=== PATIENT | female | born 1985 | race Caucasian/White ===

== ENCOUNTER 2020-11-27 13:00 | Outpatient (RCR) | payer BC, SELFPAY | END 2020-11-27 13:05 | disposition home or self-care (01) | LOC: OT 13:00 | PROVIDERS: PCP Pediatrics; Visit Provider Orthopaedic Surgery Adult Reconstructive Orthopaedic Surgery | DX: G56.01 Carpal tunnel syndrome, right upper limb; Z98.890 Other specified postprocedural states | CPT/HCPCS: 97014; 97110; 97140; 97165; 97530; G0283 ==

== ENCOUNTER 2021-01-21 08:00 | Outpatient (RCR) | payer BC, SELFPAY | END 2021-01-21 08:05 | disposition home or self-care (01) | LOC: OT 08:00 | PROVIDERS: PCP Pediatrics; Visit Provider Orthopaedic Surgery Adult Reconstructive Orthopaedic Surgery | DX: G56.02 Carpal tunnel syndrome, left upper limb (principal) | CPT/HCPCS: 97014; 97035; 97110; 97140; 97165; G0283 ==

== ENCOUNTER → 2021-06-14 20:59 | Outpatient (CLI) | payer BC, SELFPAY | PROVIDERS: PCP Pediatrics; Visit Provider Emergency Medicine | DX: Z20.822 Contact with and (suspected) exposure to COVID-19 (principal) | CPT/HCPCS: C9803; U0003; U0005 ==

== ENCOUNTER 2021-11-25 10:12 | Emergency (ER) | payer BC, SELFPAY ==
[2021-11-25 10:47] VITALS: BP 135/78; PULSE 78; RESP 16; TEMP 36.9; O2SAT 97; BMI 37.8
--- NOTE | 2021-11-25 10:47 | HMH.EDUTC ---
[facility] Disposition Clinical Impression: Right knee pain Qualifiers: Chronicity: acute Qualified Code(s): M25.561 - Pain in right knee Strain of right knee Qualifiers: Encounter type: initial encounter Qualified Code(s): S86.911A - Strain of unspecified muscle(s) and tendon(s) at lower leg level, right leg, initial encounter Disposition: Home, Self-Care Condition on Discharge: Good Instructions: Knee Sprain, DI for Knee Pain Additional Instructions: Rest the extremity, apply ice for 15 minutes as tolerated three or four times per day, Wear the leonor wrap for compression, Elevate the extremity as tolerated while you are resting. Follow up with Dr. Pro (orthopedics) if you continue to have symptoms after resting and taking the medications. I put in a referral but you need to call his office and schedule an appointment. Follow up with your regular doctor. GO TO THE ER FOR ANY WORSENING SYMPTOMS Prescriptions: methylPREDNISolone [Medrol] 4 mg PO DIRECTED 6 Days #21 packet Transmission Status: Received by [id number] Referrals: Aidan Mane [Primary Care Provider] - Phong Pro MD [Staff Physician] - Forms: Work/School Release Time of Disposition: 11:20 Medical Decision Making - Medical Records Medical records reviewed: No: I reviewed the patient's medical records. - Delroy Inquiry Pt receiving controlled substance: No Vital Signs: 11/25/21 10:47 11/25/21 11:23 Temperature 98.4 F 98.4 F Temperature Source Oral Pulse Rate 78 Pulse Rate [Left] 78 Respiratory Rate 16 16 Blood Pressure 135/78 Blood Pressure [Right Arm] 135/78 Blood Pressure Mean [Right Arm] 97 02 Sat by Pulse Oximetry 97 [facility] HPI - General Stated complaint: swelling right knee, no accident Time Seen by Provider: 11/25/21 10:47 - History of Present Illness Provider Complaint: She c/o right knee pain. She has been moving and going up and down a lot of steps recently. She denies any known injury. She has been having pain and swelling of her left knee. - Related Data Home Medications Medication Instructions Recorded Confirmed Omeprazole [Omeprazole 20mg 20 mg PO DAILY 05/14/19 05/14/19 Capsule] Venlafaxine HCl 100 mg PO BID 05/14/19 05/14/19 Previous Rx's Medication Instructions Recorded Ondansetron [Zofran 4mg ODT] 4 mg PO Q8HP PRN #20 tab.rapdis 05/14/19 methylPREDNISolone [Medrol] 4 mg PO DIRECTED 6 Days #21 11/25/21 packet Allergies Allergy/AdvReac Type Severity Reaction Status Date / Time Sulfa (Sulfonamide Allergy Verified 11/25/21 10:50 Antibiotics) Sulfonamide Related Allergy Unknown Uncoded 05/10/17 14:45 [facility] History - Hepatitis A Screen Attestation statement:: This patient has been screened for Hepatitis A risk factors. I have reviewed the patient's past medical history: Yes Medical History: Denies:: Diabetes Mellitus Type 2 - Social History Smoking Status: Current every day smoker Tobacco Type: cigarettes # Packs/Day (cigarettes): 1 Alcohol Intake: never Occupational Status: employed Housing: house ROS Obtained: Yes All systems reviewed & no additional complaints - Constitutional Constitutional: Denies chills, Denies fever(s) - Musculoskeletal Musculoskeletal: Reports as per HPI - Integumentary/Breasts Skin/Breast: Denies redness, Denies rash, Denies wounds - Neurologic Neurologic: Denies tingling/numbness/burning sensations Physical Exam - General General appearance: alert, in no apparent distress - Head Head exam: atraumatic, normocephalic, normal inspection - Eye Eye exam: Present: normal appearance, PERRL, EOMI - ENT ENT exam: Present: normal exam, normal oropharynx, mucous membranes moist, TM's normal bilaterally, normal external ear exam - Neck Neck exam: Present: normal inspection, full ROM, trachea midline. Absent: meningismus, lymphadenopathy - Chest Chest inspection: Present: normal in
[2021-11-25 11:23] VITALS: BP 135/78; PULSE 78; RESP 16; TEMP 36.9
== END 2021-11-25 11:25 | disposition home or self-care (01) ==
PROVIDERS: Emergency Provider Nurse Practitioner Family; PCP Pediatrics
DX: M25.561 Pain in right knee (principal); S86.911A Strain of unspecified muscle(s) and tendon(s) at lower leg level, right leg, initial encounter
CPT/HCPCS: 99212; G0463

== ENCOUNTER → 2021-12-14 09:57 | Outpatient (CLI) | payer BC, SELFPAY ==
--- NOTE | 2021-12-14 10:06 | XR_ITS ---
FINAL REPORT CLINICAL HISTORY: RT KNEE JOINT PAIN,EFFUSION FINDINGS: AP, lateral and oblique views of the right knee were obtained. There is no prior exam for comparison. There is no acute osseous abnormality of the right knee. The joint space is preserved. The soft tissues are normal. There is no joint effusion. IMPRESSION: No acute osseous abnormality of the right knee. Reviewed, Interpreted and Dictated by Liyah Estrada MD Transcribed by Mimi Centeno Authenticated and [facility]
== END ==
PROVIDERS: PCP Pediatrics; Visit Provider Pediatrics
DX: M25.561 Pain in right knee (principal); M25.461 Effusion, right knee
CPT/HCPCS: 73562

== ENCOUNTER 2022-01-19 08:00 | Outpatient (RCR) | payer BC, SELFPAY | END 2022-01-19 09:00 | disposition home or self-care (01) | LOC: PT 08:00 | PROVIDERS: PCP Pediatrics; Visit Provider Pediatrics | DX: M25.561 Pain in right knee (principal) | CPT/HCPCS: 97110; 97163 ==